=== PATIENT | male | born 1960 | race Caucasian/White ===

== ENCOUNTER 2020-06-17 01:13 | Outpatient (CLI) | payer OTHER, SELFPAY ==
[2020-06-17 18:46] LABS: SARS-CoV-2 RNA PCR Negative
== END 2020-06-17 01:14 | disposition home or self-care (01) ==
LOC: ANHCOVIDDT 01:13
PROVIDERS: Visit Provider Internal Medicine Critical Care Medicine
DX: Z01.812 Encounter for preprocedural laboratory examination (principal); Z20.822 Contact with and (suspected) exposure to COVID-19
CPT/HCPCS: C9803; U0003; U0005

== ENCOUNTER 2020-06-20 08:52 | Outpatient (CLI) | payer OTHER, SELFPAY ==
--- NOTE | 2020-07-12 16:06 | WPDSLEEPSTUD ---
Sleep Study Date of Study: 06/20/20 Ordering Provider: Amparo Lu MD Interpreting Physician: Charlie Shields MD Sleep Study Type: Split Polysomnogram Height: 1.78 m Weight: 113.398 kg Body Mass Index: 35.9 Neck Circumference: 55.88 cm Bertha: 13 Reason for Sleep Study Symptoms consistent with obstructive sleep apnea. Patient had prior home sleep study at [facility] and even though the duration of the study was not ideal, a diagnosis of obstructive sleep apnea was made and the patient was advised to use CPAP. The patient reportedly was intolerant of CPAP. However he continues to have persistent symptoms and was referred for repeat evaluation. Sleep History Loud disruptive snoring, witnessed apneas, restless sleep, non refreshing sleep and daytime sleepiness. Associated problems include hypertension, depression, hyper cholesterolemia, nasal obstruction. 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 SOB (shortness of breath) Syncope Surgical History Surgical History H/O arthroscopy of right knee History of arthroscopy of left shoulder Perforation of right tympanic membrane Refractory obstruction of nasal airway Family History Family History Father Alcoholic cirrhosis Social History Social History Smoking packs per day: 1 Smoking cigarettes per day: 20.0 Years smoked: 6 Smoking pack-years: 6.00 Smoking status: Former smoker Tobacco type: cigarettes Smoking end date: 05/19/79 Alcohol intake: current Drinks per week: 6 Substance use: never Medications Home Medications Medication Instructions Recorded Confirmed Type citalopram 40 mg tablet 20 mg PO DAILY 03/27/20 History lisinopril 40 mg tablet 40 mg PO DAILY 03/27/20 History meloxicam 15 mg tablet 15 mg PO DAILY 03/27/20 History omeprazole 20 mg capsule,delayed 20 mg PO DAILY 03/27/20 History release simvastatin 80 mg tablet 80 mg PO DAILY 03/27/20 History albuterol sulfate 90 mcg/actuation 1 inh INHALATION Q4H 06/01/20 History aerosol inhaler Sleep Procedure Patient underwent overnight polysomnographic evaluation using split night protocol. Sleep Architecture Diagnostic study- Total recording time 233 minutes, total sleep time 135 minutes, sleep efficiency 57.8%. Sleep latency 35 minutes, no REM sleep in diagnostic study. Awake after sleep onset 63 minutes, stage N1 37.1%, N2 62.9%, N3 and stage R 0%. Supine sleep 26.9%. Treatment study- Total recording time 219 minutes, total sleep time 182 minutes, sleep efficiency 82.9%. Sleep latency 7 minutes, REM latency 61 minutes. Awake after sleep onset 30 minutes, stage N1 23.1%, stage N2 51.4%, N3 0%, stage R 20 5.6%. Supine sleep 100%. Sleep quality improved with CPAP therapy. Respiratory Analysis CMS criteria used. Diagnostic study- 11 apneas, 10 obstructive and 1 central. Apnea index 4.9 , 120 hypopneas with index 53.4. AHI 58.3, supine index 39.7, nonsupine index 65.2. Treatment study- 16 apneas, 9 obstructive and 7 central. Apnea index 5.3, 35 hypopneas with index 11.5. AHI 16.8, non-REM index 22.6, REM index 0. All events occurred in supine sleep. Arousals Diagnostic study- total arousals 187 with index 48.1, spontaneous arousals 32, snores a
[2020-07-12 16:36] VITALS: BMI 35.9
== END 2020-06-20 08:53 | disposition home or self-care (01) ==
LOC: ANHCSM 08:53
PROVIDERS: Visit Provider Internal Medicine Critical Care Medicine
DX: G47.33 Obstructive sleep apnea (adult) (pediatric) (principal)
CPT/HCPCS: 95811